=== PATIENT | male | born 1970 | race Caucasian/White ===

== ENCOUNTER 2022-08-05 19:45 | Emergency (ER) | payer MEDICAID ==
[~2022-08-05] VITALS: Ht 185.4 cm; Wt 120.0 kg
[2022-08-05 19:53] VITALS: BP 138/76
[2022-08-06] MEDS ORDERED: CYCLOBENZAPRINE 10MG TABLET PO STA (03:51)
[2022-08-06] MEDS ORDERED: KETOROLAC 60MG/2ML VIAL IM STA (03:51)
[2022-08-06] MEDS ORDERED: CYCL5TAB PO (04:18)
[2022-08-06] MEDS ORDERED: NAPR-681 PO (04:18)
== END 2022-08-06 05:10 | disposition home or self-care (01) ==
LOC: ER 19:45
DX: S33.5XXA Sprain of ligaments of lumbar spine, initial encounter (principal); J45.909 Unspecified asthma, uncomplicated; I10 Essential (primary) hypertension; Z59.00 Homelessness unspecified; X58.XXXA Exposure to other specified factors, initial encounter; Y93.89 Activity, other specified; Y92.89 Other specified places as the place of occurrence of the external cause; Y99.8 Other external cause status
CPT/HCPCS: 96372; 99283; J1885